=== PATIENT | female | born 1985 | race African-American/Black ===

== ENCOUNTER 2016-11-07 15:29 | Emergency (ER) | payer OTHER ==
[~2016-11-07] VITALS: Ht 154.9 cm; Wt 54.4 kg
[~2016-11-07 15:29] MED LIST: BENADRYL25 MG ORAL; KEFLEX500 MG ORAL; NKM; PHENAZOPYRIDIN100 MG ORAL; PREDNISONE20 MG ORAL; ZANTAC150 MG ORAL
[2016-11-07 15:33] VITALS: BP 112/70
--- NOTE | 2016-11-07 16:08 | Emergency Room Report ---
History of Present Illness General Chief Complaint: General Complaint Source: Patient Present Illness HPI 31-year-old female presents to emergency Department complaining of intermittent palpitations every few minutes since yesterday. Patient denies recent illness denies history of cardiac problems patient denies family history of cardiac issues. Patient denies nausea vomiting fevers chills or syncope. Patient denies dizziness. Patient denies drug use, and reports mild caffeine use she drinks tea. Patient reports she recently began exercising 20 minutes of cardio daily. Patient denies use of pre-work out supplement. Patient denies history of thyroid problems or family history of thyroid dysfunction. She denies significant changes in weight, diaphoresis, night sweats, chest pain, shortness of breath or difficulty breathing. Denies CP, Palpitations, LOC, AMS, dizziness , Changes in Vision, Sensation, paresthesias, or a sudden severe headache.she denies . Allergies: Coded Allergies: METRONIDAZOLE (Verified Allergy, Unknown, 11/07/16) Patient History Past Medical History: see triage record Past Surgical History: none Pertinent Family History: none Last Menstrual Period: 11/02/2016 Now: No Immunizations: UTD Reviewed Nursing Documentation: PMH: Agreed, PSxH: Agreed Nursing Documentation-PMH Past Medical History: No Stated History Review of Systems All Other Systems: negative except mentioned in HPI Physical Exam Vital Signs Date Time Temp Pulse Resp B/P Pulse Ox O2 Delivery O2 Flow Rate FiO2 11/07/16 15:33 98.4 74 16 112/70 98 Room Air Sp02 EP Interpretation: reviewed, normal General Appearance: no apparent distress, alert, GCS 15, non-toxic Head: normocephalic, atraumatic Eyes: bilateral eye PERRL, bilateral eye normal inspection ENT: hearing grossly normal, normal pharynx, no angioedema, normal voice Neck: full range of motion, supple/symm/no masses Respiratory: chest non-tender, lungs clear, normal breath sounds, speaking full sentences Cardiovascular #1: regular rate, rhythm, no edema Gastrointestinal: normal bowel sounds, non tender, soft, no guarding, no rebound Rectal: deferred Genitourinary: normal inspection, no CVA tenderness Musculoskeletal: back normal, gait/station normal, normal range of motion, non- tender, no calf tenderness Neurologic: alert, oriented x3, responsive, motor strength/tone normal, sensory intact, speech normal Psychiatric: judgement/insight normal, memory normal, mood/affect normal, no suicidal/homicidal ideation Skin: normal color, no rash, warm/dry, well hydrated Lymphatic: no adenopathy Medical Decision Making PA Attestation Dr. whitten is my supervising Physician whom patient management has been discussed with. Diagnostic Impression: Primary Impression: Intermittent palpitations ER Course Pt. presents to the ED c/o intermittent palpitations every few minutes since yesterday. Ddx considered but are not limited to anxiety, PVC's, Thyroid dysfunction, Drug induced arrhythmia, cardiac arrhythmia, Vital signs: are WNL, pt. is afebrile H&PE are most consistent with intermittent palpitations, may be anxiety related as pt. just started school will r/o basic cardiac, electrolyte, and thyroid causes. ORDERS: -EK BPM NSR no acute ST changes interpreted by Dr. Hernandez -CMP: WNL no significant electrolyte abnormality -TSH: WNL -UA: unremarkable no infection -UDS: Negative -Urine HCG: Negative ED INTERVENTIONS: None required at this time. -D/w Pt. proper follow up with PCP may require registered dietetic technician to evaluate with holter monitor. Returning with worsening or new symptoms. DISCHARGE: At this time pt. is stable for d/c to home. Will provide printed patient care instructions, and any necessary prescriptions. Care plan and follow up instructions have been discussed with the patient prior to discharge. Labs Test 11/07/16 16:01 11/07/16 16:07 Sodium Level 139 mEQ/L (135-145) Potassium Level 4.1 mEQ/L (3.4-4.9) Chloride Level 94 mEQ/L (98-107) Carbon Dioxide Level 22 mEQ/L (20-30) Anion Gap 23 (5-15) Blood Urea Nitrogen 13 mg/dL (7-23) Creatinine 0.9 mg/dL (0.5-0.9) Estimat Glomerular Filtration Rate > 60 mL/min (>60) Glucose Level 79 mg/dL (74-106) Calcium Level 10.0 mg/dL (8.6-10.2) Total Bilirubin 0.4 mg/dL (0.0-1.2) Aspartate Amino Transf (AST/SGOT) 16 U/L (5-40) Alanine Aminotransferase (ALT/SGPT) 9 U/L (3-33) Alkaline Phosphatase 58 U/L (35-104) Troponin I < 0.30 ng/mL (<=0.30) Total Protein 7.9 g/dL (6.6-8.7) Albumin 5.0 g/dL (3.5-5.2) Globulin 2.9 g/dL Albumin/Globulin Ratio 1.7 (1.0-2.7) Thyroid Stimulating Hormone (TSH) 1.330 uIU/mL (0.300-4.500) Urine HCG, Qualitative Negative Urine Opiates Screen Negative (NEGATIVE) Urine Barbiturates Screen Negative (NEGATIVE) Phencyclidine (PCP) Screen Negative (NEGATIVE) Urine Amphetamines Screen Negative (NEGATIVE) Urine Benzodiazepines Screen Negative (NEGATIVE) Urine Cocaine Screen Negative (NEGATIVE) Urine Marijuana (THC) Screen Negative (NEGATIVE) Last Vital Signs Date Time Temp Pulse Resp B/P Pulse Ox O2 Delivery O2 Flow Rate FiO2 11/07/16 15:33 98.4 79 16 112/70 98 Room Air Disposition: HOME, SELF-CARE Condition: Stable Referrals: [employer] [facility],REFERRAUL (PCP) Patient Instructions: Palpitations Additional Instructions: Take any previously prescribed medications as directed. Follow up with [employer] Set Up Operator and PCP in 3 days Return sooner to ED if new symptoms occur, or current symptoms become worse. Avoid caffeine, try to eat a well balanced diet, and stay hydrated. Susan Garcia Nov 07, 2016 16:08
[2016-11-07 16:36] LABS: ALANINE AMINOTRANSFERASE 9 U/L (3-33); ALBUMIN/GLOBULIN RATIO 1.7 (1.0-2.7); ANION GAP 23 (5-15); ASPARTATE AMINO TRANSFERASE 16 U/L (5-40); CARBON DIOXIDE 22 mEQ/L (20-30); CHLORIDE 94 mEQ/L (98-107); CREATININE 0.9 mg/dL (0.5-0.9); GLOMERULAR FILTRATION RATE > 60 mL/min (>60); HEMOLYSIS 3; POTASSIUM 4.1 mEQ/L (3.4-4.9); SODIUM 139 mEQ/L (135-145); TOTAL PROTEIN 7.9 g/dL (6.6-8.7); TROPONIN I < 0.30 ng/mL (<=0.30)
[2016-11-07 17:24] VITALS: BP_SYST 107; BP_SYST 112; BP_DIAS 70; BP_DIAS 74
--- NOTE | 2016-11-14 14:50 | Cardiology Report ---
APPROVED REPORT EKG Measurement Heart [id number] Normal sinus rhythm Nonspecific T wave abnormality Abnormal ECG
== END 2016-11-07 17:25 | disposition home or self-care (01) ==
LOC: EMR 15:50
DX: R00.2 Palpitations (principal); Z88.8 Allergy status to other drugs, medicaments and biological substances
CPT/HCPCS: 36415; 80053; 80300; 81025; 84443; 84484; 93005; 99283